=== PATIENT | male | born 1970 | race Caucasian/White ===

== ENCOUNTER 2020-07-17 02:04 | Observation (INO) | payer BC ==
[2020-07-17] MEDS ORDERED: Morphine 4 MG/ML VIAL ONE (02:45)
[2020-07-17] MEDS ORDERED: Milk Of Magnesia 30 ML UDCUP PO PRN (04:43)
[2020-07-17] MEDS ORDERED: HYDROcodone/Acetaminophen 5/325 mg Tablet PO PRN (04:43)
[2020-07-17] MEDS ORDERED: Acetaminophen 325 MG TAB PO PRN (04:43)
[2020-07-17] MEDS ORDERED: Senokot S 8.6-50 MG TAB PO PRN (04:43)
[2020-07-17] MEDS ORDERED: Ondansetron ODT 4 MG TAB PO PRN (04:43)
[2020-07-17] MEDS ORDERED: Ondansetron PF 4 MG/2 ML Vial IVP PRN (04:43)
[2020-07-17 05:30] LABS: #Basophils 0.1 10x3/uL (0.0-0.2); #Eosinphils 0.1 10x3/uL (0.0-0.5); #Monocytes 0.9 10x3/uL (0.0-1.1); #Neutrophils 9.1 10x3/uL (1.5-8.4); %Basophils 0.4 % (0.0-2.0); %Lymphocytes 10.7 % (18.0-47.0); %Monocytes 8.2 % (0.0-10.0); %Neutrophils 79.3 % (40.0-75.0); Hemoglobin 13.7 g/dL (13.5-17.5); Mean Corpuscular HGB CONC 33.9 g/dL (32.0-36.0); Mean Corpuscular Hemoglobin 31.4 pg (27.0-33.0); Mean Corpuscular Volume 92.7 fl (81.2-95.1); Mean Platelet Volume 8.7 fl (7.4-10.4); Platelet Count 272 10x3/uL (150-450); RBC Distribution Width 14.5 % (11.5-14.5); Red Blood Cell (RBC) Count 4.36 10x6/uL (4.32-5.72); White Blood Cell (WBC) Count 11.5 10x3/uL (3.5-10.5)
[2020-07-17 05:48] LABS: Anion Gap 12 mmol/L (10-20); BUN (Urea Nitrogen) 9 mg/dL (8.9-20.6); Calc. Creatinine Clearance 0 mL/min (70-130); Calcium 8.7 mg/dL (7.8-10.44); Carbon Dioxide 22 mmol/L (22-29); Chloride 110 mmol/L (98-107); Glucose 116 mg/dL (70-105); Potassium 4.1 mmol/L (3.5-5.1); Sodium 140 mmol/L (136-145)
[2020-07-17] MEDS: Ampicillin/Sulbactam 3 GM in Sodium Chloride 0.9% 100 ML IVPB SCH ×4 (05:58→20:52)
[2020-07-17] MEDS ORDERED: HYDROcodone/Acetaminophen 5/325 mg Tablet ONE (06:41)
[2020-07-17 09:13] VITALS: BMI 28.1
[2020-07-17] MEDS: HYDROcodone/Acetaminophen 10/325 mg Tablet PO PRN ×2 (10:16→20:49)
[2020-07-17] MEDS: Enoxaparin Sodium 40 MG/0.4 ML SYRINGE SC SCH (10:17)
[2020-07-17] MEDS: Aspirin 81 mg Enteric Coated Tablet PO SCH (10:17)
[2020-07-17] MEDS: VANCOMYCIN 1.25 GM/250 ML BAG 1.25 GM in Premix Bag 1 BAG IVPB SCH ×2 (13:57→22:02)
[2020-07-18] MEDS: Ampicillin/Sulbactam 3 GM in Sodium Chloride 0.9% 100 ML IVPB SCH ×4 (04:46→23:26)
[2020-07-18 04:57] LABS: #Basophils 0.1 10x3/uL (0.0-0.2); #Eosinphils 0.2 10x3/uL (0.0-0.5); #Monocytes 0.7 10x3/uL (0.0-1.1); #Neutrophils 5.5 10x3/uL (1.5-8.4); %Basophils 0.6 % (0.0-2.0); %Eosinophils 2.3 % (0.0-6.0); %Lymphocytes 26.5 % (18.0-47.0); %Neutrophils 62.4 % (40.0-75.0); Hemoglobin 13.3 g/dL (13.5-17.5); Mean Corpuscular HGB CONC 32.6 g/dL (32.0-36.0); Mean Corpuscular Hemoglobin 30.4 pg (27.0-33.0); Mean Corpuscular Volume 93.4 fl (81.2-95.1); Platelet Count 268 10x3/uL (150-450); RBC Distribution Width 14.2 % (11.5-14.5); Red Blood Cell (RBC) Count 4.37 10x6/uL (4.32-5.72); White Blood Cell (WBC) Count 8.8 10x3/uL (3.5-10.5)
[2020-07-18 05:05] LABS: Anion Gap 14 mmol/L (10-20); BUN (Urea Nitrogen) 8 mg/dL (8.9-20.6); Calc. Creatinine Clearance 113 mL/min (70-130); Calcium 8.9 mg/dL (7.8-10.44); Carbon Dioxide 22 mmol/L (22-29); Chloride 110 mmol/L (98-107); Glucose 93 mg/dL (70-105); Potassium 3.9 mmol/L (3.5-5.1); Sodium 142 mmol/L (136-145)
[2020-07-18] MEDS ORDERED: Ondansetron PF 4 MG/2 ML Vial IVP PRN (08:57)
[2020-07-18] MEDS ORDERED: Dextrose 5 %-0.45 % NaCl 1,000 ML IV SCH (09:00)
[2020-07-18] MEDS: Dexamethasone 4 mg/ml Vial SLOW IVP SCH (10:20)
[2020-07-18] MEDS: Morphine 4 MG/ML VIAL SLOW IVP PRN ×2 (10:39→18:10)
[2020-07-18] MEDS: Aspirin 81 mg Enteric Coated Tablet PO SCH (10:39)
[2020-07-18] MEDS: Enoxaparin Sodium 40 MG/0.4 ML SYRINGE SC SCH (10:39)
[2020-07-18] MEDS ORDERED: Famotidine/PF 20 mg/2ml Vial SLOW IVP SCH (11:30)
[2020-07-18] MEDS: VANCOMYCIN 1.25 GM/250 ML BAG 1.25 GM in Premix Bag 1 BAG IVPB SCH ×2 (11:49→23:36)
[2020-07-18] MEDS ORDERED: PROPOFOL 20 ML ONE (13:14)
[2020-07-18] MEDS ORDERED: Lidocaine 1% PF 5 ML VIAL ONE (13:14)
[2020-07-18] MEDS ORDERED: Scopolamine 1.5 mg/72 hour Patch ONE (13:20)
[2020-07-18] MEDS ORDERED: Fentanyl 100 MCG/2 ML VIAL ONE (14:12)
[2020-07-18] MEDS: HYDROcodone/Acetaminophen 10/325 mg Tablet PO PRN (21:41)
[2020-07-19] MEDS: Ampicillin/Sulbactam 3 GM in Sodium Chloride 0.9% 100 ML IVPB SCH ×2 (04:36→10:54)
[2020-07-19 05:31] LABS: #Monocytes 0.7 10x3/uL (0.0-1.1); #Neutrophils 9.1 10x3/uL (1.5-8.4); %Basophils 0.1 % (0.0-2.0); %Lymphocytes 9.6 % (18.0-47.0); %Monocytes 6.4 % (0.0-10.0); %Neutrophils 83.3 % (40.0-75.0); Hemoglobin 12.4 g/dL (13.5-17.5); Mean Corpuscular HGB CONC 33.2 g/dL (32.0-36.0); Mean Corpuscular Hemoglobin 30.2 pg (27.0-33.0); Mean Platelet Volume 9.1 fl (7.4-10.4); Platelet Count 265 10x3/uL (150-450); RBC Distribution Width 13.8 % (11.5-14.5); Red Blood Cell (RBC) Count 4.11 10x6/uL (4.32-5.72)
[2020-07-19 05:48] LABS: Anion Gap 10 mmol/L (10-20); BUN (Urea Nitrogen) 12 mg/dL (8.9-20.6); Calc. Creatinine Clearance 114 mL/min (70-130); Calcium 8.4 mg/dL (7.8-10.44); Carbon Dioxide 25 mmol/L (22-29); Chloride 108 mmol/L (98-107); Glucose 188 mg/dL (70-105); Sodium 139 mmol/L (136-145)
[2020-07-19] MEDS ORDERED: Famotidine/PF 20 mg/2ml Vial SLOW IVP SCH (09:00)
[2020-07-19] MEDS: Dexamethasone 4 mg/ml Vial SLOW IVP SCH (10:55)
[2020-07-19] MEDS: Enoxaparin Sodium 40 MG/0.4 ML SYRINGE SC SCH (10:56)
[2020-07-19] MEDS: Aspirin 81 mg Enteric Coated Tablet PO SCH (11:05)
[2020-07-19 11:32] VITALS: BP 113/80; TEMP 98.5
[2020-07-19] MEDS: VANCOMYCIN 1.25 GM/250 ML BAG 1.25 GM in Premix Bag 1 BAG IVPB SCH (12:26)
== END 2020-07-19 15:45 | disposition home or self-care (01) ==
LOC: CSHERS 02:04 → INTOOBSV 04:17 → CSHERHOLD 04:17 → CSHTELE 08:37
PROVIDERS: ADMIT Family Medicine; ATTEND Internal Medicine
DX: K11.21 Acute sialoadenitis (principal); H61.23 Impacted cerumen, bilateral; I25.2 Old myocardial infarction; H93.93 Unspecified disorder of ear, bilateral; M71.38 Other bursal cyst, other site; Z79.899 Other long term (current) drug therapy; Z79.82 Long term (current) use of aspirin
CPT/HCPCS: 36415; 80048; 83735; 85025; 96372; 96374; 96375; 96376; G0378; J0295; J1100; J1650; J2270; J2405; J2704; J3010; J3370; J3490; S0028